=== PATIENT | male | born 1980 | race Two or more races ===

== ENCOUNTER 2020-04-22 17:46 | Emergency (ER) | payer SELFPAY ==
[2020-04-22] MEDS ORDERED: Acetaminophen/HYDROcodone 325-5 MG Tab PO ONE (17:47)
--- NOTE | 2020-04-22 18:06 | EDM.PDOC ---
ED HPI GENERAL MEDICAL PROBLEM - General Stated Complaint: FELL AT WORK Time Seen by Provider: 04/22/20 17:57 Source of Information: Reports: Patient History Limitations: Reports: Language Barrier - History of Present Illness INITIAL COMMENTS - FREE TEXT/NARRATIVE: c/o fall pt with no Monegasque skills, does understand Hungarian co-worker reports he slipped on ice, was helped up but had difficulty wt bearing on left denies pain at L hip/femur/knee, points to mid tib-fib as location of pain altho is NT in that area does have some edema at ankle, greater lateral, did allow boot and sock to be removed without complaining (RN supported LE while I removed boot and sock carefully) left lower leg Pain Score (Numeric/FACES): 6 - Related Data Allergies Allergy/AdvReac Type Severity Reaction Status Date / Time No Known Allergies Allergy Verified 04/22/20 18:30 Home Meds: Home Meds Hydrocodone/Acetaminophen [Hydrocodon-Acetaminophen 5-325] 1 each PO Q4HWA PRN 2 Days #8 tablet 04/22/20 [Rx] ED ROS GENERAL - Review of Systems Review Of Systems: See Below Constitutional: Reports: No Symptoms HEENT: Reports: No Symptoms Respiratory: Reports: No Symptoms Cardiovascular: Reports: No Symptoms Endocrine: Reports: No Symptoms GI/Abdominal: Reports: No Symptoms : Reports: No Symptoms Musculoskeletal: Reports: Leg Pain, Joint Pain Skin: Reports: No Symptoms Neurological: Reports: No Symptoms Psychiatric: Reports: No Symptoms Hematologic/Lymphatic: Reports: No Symptoms Immunologic: Reports: No Symptoms ED EXAM, GENERAL - Physical Exam Exam: See Below Exam Limited By: Language Barrier General Appearance: Alert, WD/WN, No Apparent Distress Ears: Hearing Grossly Normal Throat/Mouth: Normal Inspection, Normal Lips, Normal Teeth, No Airway Compromise Head: Atraumatic Neck: Normal Inspection, Supple, Non-Tender, Full Range of Motion. No: Lymphadenopathy (R), Lymphadenopathy (L) Respiratory/Chest: No Respiratory Distress Cardiovascular: Regular Rate, Rhythm GI/Abdominal: Soft, Non-Tender Back Exam: Normal Inspection, Full Range of Motion. No: CVA Tenderness (R), CVA Tenderness (L) Extremities: Other (mild swell at ankle, greater lateral altho not excessive, no ecchymosis, nonspecific tender laterall) Neurological: Alert, Oriented, CN II-XII Intact, Normal Cognition, No Motor/Sensory Deficits Psychiatric: Normal Affect Skin Exam: Warm, Dry, Intact, Normal Color, No Rash Lymphatic: No Adenopathy Course - Vital Signs Last Recorded V/S: Last Vital Signs Temp 36.7 C 04/22/20 18:45 Pulse 85 04/22/20 18:45 Resp 18 04/22/20 18:45 BP 138/85 04/22/20 18:45 Pulse Ox 97 04/22/20 18:45 - Orders/Labs/Meds Meds: Medications Discontinued Medications Generic Name Dose Route Start Last Admin Trade Name Freq PRN Reason Stop Dose Admin Hydrocodone Bitart/Acetaminophen 4 tab 04/22/20 17:47 [place] 325-5 Mg PO 04/22/20 17:48 .STK-MED ONE - Re-Assessments/Exams Free Text/Narrative Re-Assessment/Exam: 04/22/20 19:33 spiral fx of L tib-fib without comminution, has associated sprain of L ankle with minimal swell 4" applied around ankle and long leg immobilizer to support the tib-fib, applied over his jeans and long browning, pt did not demonstrate pain pt is from [place], accompanied by a friend who is also from [place], working in [place] desires to go back to [place] for surgery, call placed to [facility] in [place] to on-call ortho, our phone [phone] was left with RN who said that he would page ortho, who has not called back 04/24/20 09:33 note, call never received back from on-call ortho at [facility] in [place] Departure - Departure Time of Disposition: 19:18 Disposition: Home, Self-Care 01 Condition: Good Clinical Impression: Closed fracture of left tibia and fibula, Left ankle sprain - Discharge Information *PRESCRIPTION DRUG MONITORING PROGRAM REVIEWED*: Not Applicable *COPY OF PRESCRIPTION DRUG MONITORING REPORT IN PATIENT POONAM: Not Applicable Prescriptions: Hydrocodone/Acetaminophen [Hydrocodon-Acetaminophen 5-325] 1 each PO Q4HWA PRN 2 Days #8 tablet PRN Reason: Left Leg Pain Instructions: Ankle Sprain, Tibial and Fibular Fractures, Cast or Splint Care, Adult, Crutch Use, Adult Referrals: PCP,None [Primary Care Provider] - Forms: ED Department Discharge Additional Instructions: Do not put weight on your left leg. Use crutches at all time when out of bed. Use wrap around ankle and long leg immobilizer both day and night. With someone else's help, may remove the long leg immobilizer to remove your clothing. Reapply the immobilizer snugly (but not tighter than it currently is) against the skin and to wear loose sweat pants over the brace. Pain should be minimal if the broken ends of the bone are not moving around. Use ice for your ankle 10 minutes 4 times a day for 2 days, may apply directly over the wrap. For pain, take ibuprofen 200 mg 3 tabs and acetaminophen 325 mg 2 tabs 4 times a day. Speak to orthopedic surgeon in [place] tomorrow to make arrangements for surgery, which may not be until the first of next week. Orthopedic options in [place] are following: [facility] [address] [place] [address] [id number] Cameron Rodriguez M.D. Orthopedic surgeon [address] [place] [address] [facility] Apolinar Smith M.D. Orthopedic surgeon [address] [place] [address] [address] Call back to here if you need assistance in arranging an appointment with an orthopedic surgeon. Call your Physician or Return to Emergency Department if: * Your condition worsens in any way. * You develop fever greater than 100.4. * You have vomiting that does not stop with medications. * You have pain that is not controlled with medications. No apoye peso sobre la pierna izquierda. Use muletas en todo momento cuando est fuera de la cama. Utilice el inmovilizador de tobillo y pierna larga de tanto de da latoya de noche. Con la ayuda de otra persona, puede quitarse el inmovilizador de pierna larga para quitarse la ropa. Vuelva a aplicar el inmovilizador cmodamente (shabnam no ms apretado de lo que est actualmente) contra la piel y use pantalones de chndal holgados sobre la abrazadera. El dolor debe ser mnimo si los extremos rotos del hueso no se mueven. Use hielo para barcenas tobillo 10 minutos 4 veces al da monty 2 mullins, puede aplicar directamente sobre la venda . Para el dolor, tome ibuprofeno 200 mg 3 tabletas y acetaminofeno 325 mg 2 tabletas 4 veces al da. Hable con el [facility]topdico en [place] maana para hacer los arreglos para la ciruga, que puede que no sea hasta el maria dolores de la semana prxima. Las opciones ortopdicas en [place] son las siguientes: [facility] [address] [facility] [address] Cameron Rodriguez M.D. [facility] [address] [place] [address] Apolinar Smith M.D. [facility] [address] [facility] [address] Vuelva a llamar aqu si necesita ayuda para concertar elvie nadine con un [facility]ano ortopdico. Llame a barcenas mdico o regrese al departamento de emergencias si: * Barcenas condicin empeora de alguna manera. * Desarrolla fiebre superior a 100,4. * Tiene vmitos que no se detienen con los medicamentos. * Tiene dolor que no se controla con medicamentos.
--- NOTE | 2020-04-23 11:14 | CR ---
INDICATION: Fall at work. LEFT KNEE: Frontal and lateral views of the left knee were obtained 04/22/20 - no comparison. Minimal hypertrophic degenerative changes are noted at the intercondylar spines with femorotibial and patellofemoral joint spaces appearing to be fairly well maintained. There is some minimal hypertrophic change off the patella at tendinous insertions. No acute fracture or dislocation. No definite joint effusion was not identified at the knee. There is, however, noted an oblique fracture through the proximal shaft of the fibula which appears acute. IMPRESSION: 1. Fibular shaft fracture. 2. Minimal osteoarthritis. MTDD
--- NOTE | 2020-04-23 11:19 | CR ---
INDICATION: Slip and fall on ice. Complains of pain mid tib-fib. LEFT TIB-FIB: Frontal and lateral views of the left tibia and fibula revealed spiral fractures of the proximal shaft of the fibula and distal shaft of the tibia with offset 7 mm of the distal tibial fracture fragment due to lateral angulation of the proximal aspect of the distal fracture fragment of the tibia. Position and alignment was fairly satisfactory otherwise. Adequate position and alignment is noted at the fibular fracture site. A bony density at the inferior aspect of the medial malleolus is noted compatible with an ununited accessory ossification center or possibly a previous chip fracture fragment that did not unite. The ankle mortise is otherwise unremarkable. IMPRESSION: Fractures of the fibula and tibia with 7 mm of offset at the tibial fracture site - overall adequate position and alignment suggested at the fracture sites. MTDD
--- NOTE | 2020-04-23 11:23 | CR ---
INDICATION: Slip and fall on ice. Complains of pain mid tib-fib. LEFT ANKLE: Three views of the left ankle revealed a spiral fracture through the distal shaft of the tibia with lateral offset of the distal tibial fracture fragment of approximately 7 mm. Some very minimal overriding of the fracture fragments of perhaps 4 mm is also noted. Bony density inferior to the medial malleolus may represent a previous ununited chip fracture fragment or ununited accessory ossification center. The ankle mortise was otherwise intact. MTDD
== END 2020-04-22 20:15 | disposition home or self-care (01) ==
LOC: FB.ED 17:46
DX: S82.242A Displaced spiral fracture of shaft of left tibia, initial encounter for closed fracture (principal); S82.442A Displaced spiral fracture of shaft of left fibula, initial encounter for closed fracture; S93.402A Sprain of unspecified ligament of left ankle, initial encounter; W00.0XXA Fall on same level due to ice and snow, initial encounter; Y99.0 Civilian activity done for income or pay
CPT/HCPCS: 73560; 73590; 73610; 99283; 99284; A9270